=== PATIENT | female | born 1975 | race African-American/Black ===

== ENCOUNTER 2017-11-15 22:15 | Emergency (ER) | payer BC ==
[2017-11-15 22:21] VITALS: BP 133/72; BMI 32.8
[2017-11-15 23:02] LABS: BILIRUBIN,URINE NEGATIVE (NEGATIVE); BLOOD/HEMOGLOBIN,URINE 4+ (NEGATIVE); GLUCOSE, URINE NEGATIVE (NEGATIVE); KETONES,URINE NEGATIVE (NEGATIVE); LEUKOCYTE ESTERASE ,URINE 3+ (NEGATIVE); NITRITES,URINE POSITIVE (NEGATIVE); PROTEIN,URINE 2+ (NEGATIVE); UROBILINOGEN,URINE NORMAL (NORMAL)
--- NOTE | 2017-11-15 23:06 | DR.GENAD ---
HPI - PCP Primary Care Physician: [facility] [place] - HPI Comment HPI Comment: WORSE TODAY. - Complaint/Symptoms Chief Complaint Doctors Comments: DYSURIA AND URINARY FREQUENCY TIMES ONE DAY. Chief Complaint:: URINARY FREQUENCY, DYSURIA SINCE YESTERDAY - Nurses notes reviewed Nurses Notes Review: Yes - Source History Provided: Patient - Mode of Arrival Mode of Arrival: Ambulatory - Timing Onset of Chief Complaint: 11/14/17 Came on: Suddenly - Duration Duration: Constant Duration: Days - Severity Severity: Moderate PMH - PMH Past Medical History: No Past Surgical History: Yes Past Surgical History Comment: HERNIA REPAIR TIMES 3. DNC - Family History History of Family Medical Conditions: Yes Family Medical History: Hypertension - Social History Does patient currently use any type of tobacco product: No Have you used tobacco products in the last 12 months: No Type of Tobacco Use: None Does any household member use tobacco: No Alcohol Use: None Do you use any recreational Drugs:: No Lives With: Spouse Lives Where: Home - infectious screening Have you traveled outside the country in the last 6 months?: No Isolation: Standard ROS - Review of Systems Constitutional: No Symptoms Reported Eyes: No Symptoms Reported ENTM: No Symptoms Reported Respiratoy: No Symptoms Reported Cardiovascular: No Symptoms Reported Gastrointestinal/Abdominal: No Symptoms Reported Genitourinary: Dysuria, Frequency Neurological: No Symptoms Reported Musculoskeletal: No Symptoms Reported Integumentary: No Symptoms Reported Hematologic/Lymphatic: No Symptoms Reported Endocrine: No Symptoms Reported All Other Systems: Reviewed and Negative PE - Vital Signs Vitals: Temperature 98.6 F Pulse Rate 56 Respiratory Rate 20 Blood Pressure 133/72 O2 Sat by Pulse Oximetry 96 - General Limitations: No Limitations General Appearance: Alert - Head Head Exam: Normal Inspection - Eyes Eye exam: Normal Appearance - ENT ENT Exam: Normal External Ear Exam External Ear Exam: Normal External Inspection TM/Canal Exam: Bilateral Normal Nose Exam: Normal Nose Exam Mouth Exam: Normal Inspection Throat Exam: Normal Inspection - Neck Neck Exam: Normal Inspection - Chest Chest Inspection: Symmetric Chest Wall Rise - Respiratory Respiratory Exam: Normal Lung Sounds Bilat Respiratory Exam: Bilateral Clear to Auscultation - Cardiovascular Cardiovascular Exam: Regular Rate, Normal Rhythm, Normal Heart Sounds - Abdominal Exam Abdominal Exam: Normal Bowel Sounds, Soft. negative: Tenderness - Extremities Extremities Exam: Normal Inspection - Back Back Exam: Normal Inspection - Neurologic Neurological Exam: Alert, Oriented X3 - Psychiatric Psychiatric Exam: Normal Affect, Normal Mood - Skin Skin Exam: Normal Color MDM - Differential Diagnosis Differential Diagnosis: UTI Course - Treatment Treatment: SEE ORDERS - Education/Counseling Education/Counseling: Patient, Family, Education Educated On: Treatment, Diagnosis, Needs for Follow Up ROR - Labs Reviewed Laboratory Results Reviewed?: Yes Laboratory: Specimen Type Clean catch urine 11/15/17 22:43 Urine Color Yellow (YELLOW) 11/15/17 22:43 Urine Appearance Cloudy (CLEAR) 11/15/17 22:43 Urine pH 6.0 (5.0 - 8.0) 02 22:43 Ur Specific Mcdonald 1.015 (1.000-1.030) 11/15/17 22:43 Urine Protein 2+ (NEGATIVE) 11/15/17 22:43 Urine Glucose (UA) Negative (NEGATIVE) 11/15/17 22:43 Urine Ketones Negative (NEGATIVE) 11/15/17 22:43 Urine Occult Blood 4+ (NEGATIVE) 11/15/17 22:43 Urine Nitrite Positive (NEGATIVE) 11/15/17 22:43 Urine Bilirubin Negative (NEGATIVE) 11/15/17 22:43 Urine Urobilinogen Normal (NORMAL) 11/15/17 22:43 Ur Leukocyte Esterase 3+ (NEGATIVE) 11/15/17 22:43 Urine RBC 5-10 /HPF (NEGATIVE) 11/15/17 22:43 Urine WBC Tntc /HPF (NEGATIVE) 11/15/17 22:43 Ur Squamous Epith Cells Few /HPF (NEGATIVE) 11/15/17 22:43 Urine Bacteria 2+ /HPF (NEGATIVE) 11/15/17 22:43 Ur Culture Indicated? Yes/culture set up 11/15/17 22:43 - Diagnosis Discharge Problem: URI (upper respiratory infection) - Discharge Plan Disposition: 01 HOME, SELF-CARE Condition: Stable Prescriptions: Ciprofloxacin HCl [CIPRO 500 MG TAB *] 500 mg PO Q12H #20 tab Phenazopyridine HCl 200 mg PO TID PRN #12 tablet PRN Reason: - Follow ups/Referrals Follow ups/Referrals: NFD,None [Primary Care Provider] - 3 days - Instructions Instructions: Urinary Tract Infection, Adult, [id number] Additional Instructions: RETURN TO ED IF WORSE.
[2017-11-15 23:11] LABS: APPEARANCE,URINE CLOUDY (CLEAR); COLOR,URINE YELLOW (YELLOW)
[2017-11-15 23:12] LABS: BACTERIA,URINE 2+ /HPF (NEGATIVE); SQUAMOUS EPITHELIAL CELL,UR FEW /HPF (NEGATIVE)
[2017-11-15] MEDS ORDERED: CIPRO TAB 500 MG PO ONE ×2 (23:21→23:23)
[2017-11-15] MEDS ORDERED: PYRIDIUM PO ONE ×2 (23:22→23:23)
== END 2017-11-15 23:31 | disposition home or self-care (01) ==
LOC: ER 22:29
DX: J06.9 Acute upper respiratory infection, unspecified (principal); B96.29 Other Escherichia coli [E. coli] as the cause of diseases classified elsewhere
CPT/HCPCS: 81001; 87086; 87088; 87186; 99282

== ENCOUNTER 2018-02-11 01:25 | Emergency (ER) | payer BC ==
[2018-02-11 01:41] VITALS: BMI 34.7
--- NOTE | 2018-02-11 02:26 | DR.GENAD ---
HPI - PCP Primary Care Physician: nfd - Complaint/Symptoms Chief Complaint Doctors Comments: Patient is complaining of dizziness and feeling light headed for the past 24 hours getting progressively worst with dizziness worst when she stand or change position. states she was going to a doctor in [place] but has not gone to the doctor in a long time. She denies chest pain but SOb at times with nausea but no vomiting. States he periods has been regular with last menstrual period yesterday. States her appetite has elena doing good but when she stand Chief Complaint:: started having dizzy spells and feeling really weak and lightheaded upon standing - Nurses notes reviewed Nurses Notes Review: Yes - Source History Provided: Patient - Mode of Arrival Mode of Arrival: Ambulatory - Timing Onset of Chief Complaint: 02/10/18 Came on: Gradually - Duration Duration: Intermittent How lon Duration: Days - Location Location: light headed - Severity Severity: Moderate - Modifying Factors Worsens:: standing and bending Improves:: nothing PMH - PMH Past Medical History: Yes Past Medical History: Asthma Past Surgical History: Yes Surgical History: Other Past Surgical History Comment: Hernia repair x3, breast reduction, d&c - Family History History of Family Medical Conditions: Yes Family Medical History: Hypertension - Social History Does any household member use tobacco: No Alcohol Use: None Do you use any recreational Drugs:: No Lives With: Family Lives Where: Home - infectious screening In the last 2 months have you had wt loss of >10#?: NO Have you had fever, night sweats or hemotysis?: No Have you traveled outside the country in the last 6 months?: No Isolation: Standard ROS - Review of Systems Constitutional: No Symptoms Reported, Weakness, Loss of Appetite. negative: See HPI, Chills, Diaphoresis, Fever, Malaise, Irritable, Fatigue, Other Eyes: No Symptoms Reported ENTM: No Symptoms Reported, Nose Discharge, Nose Congestion Respiratoy: No Symptoms Reported, Short of Breath. negative: See HPI, Productive Cough, Non-Productive Cough, Moist Cough, Dry Cough, Hacking Cough, Barking Cough, Brassy Cough, Orthopnea, Stridor, Wheezing, Hemoptysis, Other Cardiovascular: No Symptoms Reported. negative: See HPI, Chest Pain, Edema, Palpitations, Syncope, Cyanosis, Skin Mottling, Other Gastrointestinal/Abdominal: No Symptoms Reported, Nausea. negative: See HPI, Abdominal Pain, Constipation, Diarrhea, Vomiting, Food Intolerance, Other Genitourinary: No Symptoms Reported Neurological: No Symptoms Reported, Weakness. negative: See HPI, Anxiety, Depressed, Emotional Problems, Headache, Numbness, Paresthesia, Pre-existing Deficit, Seizure, Tingling, Tremors, Dizziness, Problems Walking, Speech Problem , Other Musculoskeletal: No Symptoms Reported Integumentary: No Symptoms Reported Hematologic/Lymphatic: No Symptoms Reported Endocrine: No Symptoms Reported Psychiatric: No Symptoms Reported. negative: See HPI, Anxiety, Depression, Hallucinations, Excessive crying, Suicidal, Other PE - Vital Signs Vitals: Temperature 97.6 F Pulse Rate 55 Respiratory Rate 20 Blood Pressure [Standing] 165/85 Blood Pressure [Sitting] 178/103 Blood Pressure [Lying] 154/81 Blood Pressure 148/81 O2 Sat by Pulse Oximetry 99 - General Limitations: No Limitations General Appearance: Alert, In Distress (slight), Obese - Head Head Exam: Normal Inspection, Atraumatic, Normocephalic - Eyes Eye exam: Normal Appearance, PERRL, EOMI. negative: Scleral Icterus, Conjunctival Injection, Nystagmus, Miosis, Mydrasis, Periorbital Swelling, Periorbital Tenderness, Other - ENT ENT Exam: Normal Exam, Normal Oropharynx, Normal External Ear Exam, Mucous Membranes Moist, TM's Normal Bilaterally External Ear Exam: Normal External Inspection TM/Canal Exam: Bilateral Normal Nose Exam: Normal Nose Exam Mouth Exam: Normal Inspection. negative: Drooling, Trismus, Lip Swelling, Tongue Elevation, Tongue Swelling, Laceration, Other Throat Exam: Normal Inspection. negative: Tonsillar Erythema, Tonsillomegaly, Tonsillar Exudate, R Peritonsillar Mass, L Peritonsillar Mass, Muffled Voice, Other - Neck Neck Exam: Normal Inspection, Full ROM, Trachea Midline. negative: Tenderness, Meningismus, Lymphadenopathy, Thyromegaly, Other - Chest Chest Inspection: Normal Inspection, Symmetric Chest Wall Rise. negative: Tenderness, Rash, Abscess, Other - Respiratory Respiratory Exam: Normal Lung Sounds Bilat. negative: Accessory Muscle Use, Chest Wall Tenderness, Prolonged Expiratory Phase, Respiratory Distress, Stridor , Other Respiratory Exam: Bilateral Clear to Auscultation - Cardiovascular Cardiovascular Exam: Regular Rate, Normal Rhythm, Normal Heart Sounds - Abdominal Exam Abdominal Exam: Normal Inspection, Normal Bowel Sounds, Soft Abdominal Tenderness: Suprapubic, Mild - Extremities Extremities Exam: Normal Inspection, Full ROM, Normal Capillary Refill. negative: Tenderness, Edema, Joint Swelling, Calf Tenderness, Other - Back Back Exam: Normal Inspection, Full ROM. negative: Tenderness, (R) CVA Tenderness, (L) CVA Tenderness, Muscle Spasm, Paraspinal Tenderness, Vertebral Tenderness, Rashes, (R) Sciatic Notch Tenderness, (L) Sciatic Notch Tendern, (R ) Straight Leg Raise, (L) Straight Leg Raise, Other - Neurologic Neurological Exam: Alert, Oriented X3, CN II-XII Intact, Normal Gait, Reflexes Normal - Psychiatric Psychiatric Exam: Normal Affect, Normal Mood - Skin Skin Exam: Warm, Dry, Intact, Normal Color ROR - Labs Reviewed Laboratory Results Reviewed?: Yes (All labs and x-ray results reviewed and discussed with patient) Result Diagrams: 02/11/18 02:32 02/11/18 02:32 Laboratory: WBC 9.0 X10^3/uL (3.6-10.0) 02/11/18 02:32 RBC 4.13 X10^6/uL (3.5-5.4) 02/11/18 02:32 Hgb 11.3 g/dL (12.0-16.0) L 02/11/18 02:32 Hct 34.4 % (36.0-47.0) L 02/11/18 02:32 MCV 83.3 fL (80.0-100.0) 02/11/18 02:32 MCH 27.3 pg (27.0-34.0) 02/11/18 02:32 MCHC 32.8 g/dL (33.0-35.0) L 02/11/18 02:32 RDW 14.1 % (11.6-16.5) 02/11/18 02:32 Plt Count 229 X10^3/uL (150.0-450.0) 02/11/18 02:32 MPV 10.7 fL (7.4-11.0) 02/11/18 02:32 Neut % (Auto) 52.6 % (42.0-75.0) 02/11/18 02:32 Lymph % (Auto) 30.9 % (21.0-51.0) 02/11/18 02:32 [place] % (Auto) 6.0 % (0.0-13.0) 02/11/18 02:32 Eos % (Auto) 9.2 % (0.9-2.9) H 02/11/18 02:32 Baso % (Auto) 1.3 % (0.2-1.0) H 02/11/18 02:32 Neut # (Auto) 4.7 x10^3/uL (2.2-4.8) 02/11/18 02:32 Lymph # (Auto) 2.8 X10^3/uL (1.3-2.9) 02/11/18 02:32 [place] # (Auto) 0.5 x10^3/uL (0.3-0.8) 02/11/18 02:32 Eos # (Auto) 0.8 x10^3/uL (0.0-0.2) H 02/11/18 02:32 Baso # (Auto) 0.1 X10^3/uL (0.0-0.1) 02/11/18 02:32 Absolute Nucleated RBC 0.0 /100WBC 02/11/18 02:32 INR Target Range - 02/11/18 02:32 INR 1.00 (0.8-1.3) 02/11/18 02:32 APTT 32.2 SECONDS (22.9-36.5) 02/11/18 02:32 PTT Comment - 02/11/18 02:32 D-Dimer 216 ng/mL (0-400) 02/11/18 02:32 Sodium 141 mmol/L (136-145) 02/11/18 02:32 Corrected Sodium 142 mmol/L (136-145) 02/11/18 02:32 Potassium 3.5 mmol/L (3.5-5.1) 02/11/18 02:32 Chloride 107 mmol/L (98-107) 02/11/18 02:32 Carbon Dioxide 25.0 mmol/L (21-32) 02/11/18 02:32 BUN 12 mg/dL (7-18) 02/11/18 02:32 Creatinine 0.85 mg/dL (0.55-1.02) 02/11/18 02:32 Est GFR (MDRD) Af Amer > 60 (>60) 02/11/18 02:32 Est GFR (MDRD) Non-Af > 60 (>60) 02/11/18 02:32 Glucose 127 mg/dL (65-99) H 02/11/18 02:32 Calcium 8.3 mg/dL (8.5-10.1) L 02/11/18 02:32 Corrected Calcium 8.9 mg/dL (8.5-10.1) 02/11/18 02:32 Magnesium 1.7 mg/dL (1.7-2.9) 02/11/18 02:32 Total Bilirubin 0.50 mg/dL (0.2-1.0) 02/11/18 02:32 AST 24 Units/L (15-37) 02/11/18 02:32 ALT 19 Units/L (12-78) 02/11/18 02:32 Alkaline Phosphatase 76 Units/L (46-116) 02/11/18 02:32 Creatine Kinase 204 Units/L (26-192) H 02/11/18 02:32 CK-MB (CK-2) < 1.0 ng/mL (0-4.0) 02/11/18 02:32 CK/CKMB % Calc 0.5 % (<4) 02/11/18 02:32 Troponin I < 0.02 ng/mL (0-1.5) 02/11/18 02:32 Total Protein 7.2 g/dL (6.4-8.2) 02/11/18 02:32 Albumin 3.3 g/dL (3.4-5.0) L 02/11/18 02:32 Globulin 3.9 g/dL (2.5-4.5) 02/11/18 02:32 Albumin/Globulin Ratio 0.8 Ratio (1.1-2.1) L 02/11/18 02:32 - XRAY XRAY Interpreted by: Radiologist (CXR: No acute chest process noted) - EKG Rate: 53 [place]: Normal Rhythm: NSR, SB Block: None Hypertrophy: None ST: Nonsp - Diagnosis Discharge Problem: Dizziness on standing, Essential hypertension, Hyperglycemia, Anemia, Sinusitis , chronic, Bradycardia - Discharge Plan Disposition: 01 HOME, SELF-CARE Condition: Stable Prescriptions: Meclizine HCl [Antivert Tab 25 mg] 25 mg PO TID PRN #30 tab PRN Reason: MOTION SICKNESS - Follow ups/Referrals Follow ups/Referrals: NFD,None [Primary Care Provider] - 3 days Mc Benavidez [STAFF PHYSICIAN] - 3 days - Instructions Instructions: Sinusitis, Adult, [id number], Hyperglycemia, Dizziness, Easy-to -Read, Hypertension
[2018-02-11] MEDS ORDERED: NS 1000 ML 1,000 ML ONE (02:28)
[2018-02-11 02:49] LABS: BASOPHILS # (AUTO) 0.1 X10^3/uL (0.0-0.1); BASOPHILS % (AUTO) 1.3 % (0.2-1.0); EOSINOPHILS # (AUTO) 0.8 x10^3/uL (0.0-0.2); EOSINOPHILS % (AUTO) 9.2 % (0.9-2.9); HEMATOCRIT 34.4 % (36.0-47.0); HEMOGLOBIN 11.3 g/dL (12.0-16.0); LYMPHOCYTES # (AUTO) 2.8 X10^3/uL (1.3-2.9); LYMPHOCYTES % (AUTO) 30.9 % (21.0-51.0); MEAN CORPUSCULAR HEMOGLOBIN 27.3 pg (27.0-34.0); MEAN CORPUSCULAR HGB CONC 32.8 g/dL (33.0-35.0); MEAN CORPUSCULAR VOLUME 83.3 fL (80.0-100.0); MEAN PLATELET VOLUME 10.7 fL (7.4-11.0); MONOCYTES # (AUTO) 0.5 x10^3/uL (0.3-0.8); NEUTROPHILS # (AUTO) 4.7 x10^3/uL (2.2-4.8); NEUTROPHILS % (AUTO) 52.6 % (42.0-75.0); PLATELET COUNT 229 X10^3/uL (150.0-450.0); RED BLOOD COUNT 4.13 X10^6/uL (3.5-5.4); RED CELL DISTRIBUTION WIDTH 14.1 % (11.6-16.5)
[2018-02-11 02:59] LABS: BLOOD UREA NITROGEN 12 mg/dL (7-18); CALCIUM 8.3 mg/dL (8.5-10.1); CHLORIDE 107 mmol/L (98-107); COR NA(FOR HYPERGLY) 142 mmol/L (136-145); CREATININE 0.85 mg/dL (0.55-1.02); SODIUM 141 mmol/L (136-145); TROPONIN I < 0.02 ng/mL (0-1.5); eGFR BLACK RACES > 60 (>60); eGFR NON BLACK RACES > 60 (>60)
[2018-02-11] MEDS ORDERED: NS 1000 ML 1,000 ML IV SCH (03:00)
[2018-02-11 03:04] LABS: ALANINE AMINOTRANSFERASE 19 Units/L (12-78); ALBUMIN 3.3 g/dL (3.4-5.0); ALKALINE PHOSPHATASE 76 Units/L (46-116); ASPARTATE AMINO TRANSFERASE 24 Units/L (15-37); CKMB % 0.5 % (<4); COR CA(FOR HYPOALB) 8.9 mg/dL (8.5-10.1); CREATINE KINASE 204 Units/L (26-192); CREATINE KINASE MB < 1.0 ng/mL (0-4.0); MAGNESIUM 1.7 mg/dL (1.7-2.9); TOTAL PROTEIN 7.2 g/dL (6.4-8.2)
--- NOTE | 2018-02-11 04:27 | RAD ---
Chest AP portable Indication: Weakness and dizziness Findings: There is no pneumothorax, effusion or consolidation. Heart size upper limits of normal for technique. Impression: No acute chest process Reported By:
[2018-02-11] MEDS ORDERED: ANTIVERT TAB 25 MG PO ONE (05:05)
[2018-02-11] MEDS ORDERED: ANTIVERT TAB 25 MG ONE (05:17)
[2018-02-11 05:24] VITALS: BP 157/71
== END 2018-02-11 05:22 | disposition home or self-care (01) ==
LOC: ER 01:25
DX: R42 Dizziness and giddiness (principal); I10 Essential (primary) hypertension; R73.9 Hyperglycemia, unspecified; D64.9 Anemia, unspecified; J32.9 Chronic sinusitis, unspecified; R00.1 Bradycardia, unspecified; R94.31 Abnormal electrocardiogram [ECG] [EKG]
CPT/HCPCS: 36415; 71045; 80053; 82550; 82553; 83735; 84484; 85025; 85378; 85610; 85730; 93005; 93010; 96365; 96367; 99283; A4222